=== PATIENT | male | born 1990 | race Caucasian/White ===

== ENCOUNTER 2016-12-02 09:10 | Emergency (ER) | payer MEDICAID, OTHER ==
[~2016-12-02] VITALS: Ht 180.3 cm; Wt 73.0 kg
[2016-12-02 09:11] VITALS: BP 135/70
[2016-12-02] MEDS ORDERED: CLINDAMYCIN 150 MG CAP PO ONE (10:15)
[2016-12-02] MEDS ORDERED: AZITHROMYCIN 250 MG TAB PO ONE (10:15)
[2016-12-02] MEDS ORDERED: MAGIC MOUTHWASH SUSPENSION BTL SSP ONE (10:15)
[2016-12-02] MEDS ORDERED: MAGICMW MT (10:17)
[2016-12-02] MEDS ORDERED: ZITHTAB PO (10:17)
== END 2016-12-02 10:47 | disposition home or self-care (01) ==
LOC: M ED 10:17
DX: J02.0 Streptococcal pharyngitis (principal)

== ENCOUNTER 2018-08-13 17:16 | Emergency (ER) | payer OTHER ==
[~2018-08-13] VITALS: Ht 180.3 cm; Wt 75.0 kg
[~2018-08-13 17:16] MED LIST: MAGICMW MT; ZITHTAB PO
--- NOTE | 2018-08-13 18:29 | REP ---
Clinical: Palpitations and chest pain with shortness of breath . Comparison: None . Technique: PA and lateral. Findings: The mediastinum and cardiac silhouette are normal. The lung acosta are clear and without acute consolidation, effusion, or pneumothorax. The skeletal structures are intact and normal. Impression: 1. No acute cardiopulmonary process. Electronically Signed by Scott Mata MD 08/13/2018 06:21 P
[2018-08-13 18:55] LABS: BASO % 0.4 % (0.0-1.0); EOS # 0.1 10^3/uL (0.0-0.50); EOS % 0.6 % (0.0-3.0); HEMATOCRIT 49.7 % (42.0-52.0); HEMOGLOBIN 17.1 g/dl (13.5-17.5); LYMPH # 1.2 10^3/uL (1.5-6.5); LYMPH % 11.1 % (24.0-44.0); MEAN CORPUSCULAR HEMOGLOBIN 30.5 pg (27.0-33.0); MEAN CORPUSCULAR HGB CONC 34.4 g/dl (32.0-36.5); MEAN CORPUSCULAR VOLUME 88.8 fl (80.0-96.0); MONO # 0.8 10^3/uL (0.0-0.8); NEUTROPHILS # 8.4 10^3/uL (1.8-7.7); NEUTROPHILS % 79.5 % (36.0-66.0); PLATELET COUNT, AUTOMATED 260 10^3/uL (150-450); WHITE BLOOD COUNT 10.6 10^3/uL (4.0-10.0)
[2018-08-13 19:09] LABS: AMPHETAMINES LEVEL URINE POSITIVE (NEGATIVE); BARBITURATES URINE NEGATIVE (NEGATIVE); BENZODIAZEPINES URINE NEGATIVE (NEGATIVE); CANNABINOIDS URINE POSITIVE (NEGATIVE); COCAINE METABOLITE URINE NEGATIVE (NEGATIVE); METHADONE URINE NEGATIVE (NEGATIVE); OPIATES URINE NEGATIVE (NEGATIVE); PHENCYCLIDINE URINE NEGATIVE (NEGATIVE)
[2018-08-13 19:21] LABS: INFLUENZA A AMPLIFICATION NEGATIVE (NEGATIVE); INFLUENZA B AMPLIFICATION NEGATIVE (NEGATIVE)
[2018-08-13 19:26] LABS: APPEARANCE, URINE CLEAR (CLEAR); BACTERIA, URINE AUTO NEGATIVE (NEGATIVE); BILIRUBIN, URINE AUTO NEGATIVE (NEGATIVE); BLOOD, URINE BLOOD NEGATIVE (NEGATIVE); CALCIUM OXALATE CRYSTALS SMALL; COLOR, URINE YELLOW (YELLOW); GLUCOSE, URINE (UA) AUTO NEGATIVE (NEGATIVE); KETONE, URINE AUTO 1+ mg/dL (NEGATIVE); LEUKOCYTE ESTERASE, URINE AUTO NEGATIVE (NEGATIVE); MUCUS, URINE SMALL (NEGATIVE); NITRITE, URINE AUTO NEGATIVE (NEGATIVE); PROTEIN, URINE AUTO 1+ mg/dL (NEGATIVE); RBC, URINE AUTO 0 /HPF (0-3); SPECIFIC GRAVITY URINE AUTO 1.024 (1.002-1.035); SQUAMOUS EPITHELIAL CELL UR AU 0 /HPF (0-6); WBC, URINE AUTO 0 /HPF (0-3)
[2018-08-13 19:31] LABS: ALBUMIN 4.4 GM/DL (3.2-5.2); ALT/SGPT 25 U/L (12-78); BILIRUBIN,TOTAL 1.2 MG/DL (0.2-1.0); BLOOD UREA NITROGEN 12 MG/DL (7-18); CARBON DIOXIDE LEVEL 25 MEQ/L (21-32); CHLORIDE LEVEL 104 MEQ/L (98-107); CPK CREATINE PHOSPHOKINASE 177 U/L (39-308); CREATININE FOR GFR 0.98 MG/DL (0.70-1.30); FREE THYROXINE INDEX 5.5 % (1.4-3.8); GLOMERULAR FILTRATION RATE > 60.0 (>60); GLUCOSE, FASTING 82 MG/DL (70-100); MB/CK RELATIVE INDEX 1.02 (< OR =4); POTASSIUM SERUM 4.4 MEQ/L (3.5-5.1); SODIUM LEVEL 139 MEQ/L (136-145); T UPTAKE 38 % (33-40); THYROXINE (T4) 14.4 UG/DL (4.5-12.0); TOTAL PROTEIN 8.2 GM/DL (6.4-8.2); TROPONIN I < 0.02 NG/ML (< 0.10)
--- NOTE | 2018-08-13 20:13 | ECGEPIP ---
Stationary ECG Study [facility] - ED Test Date: 2018-08-13 Pat Name: SUN EVANS Department: Room: - Gender: M Quality Rn: : [id number] Requested By: RONY GARCIA Order Number: [id number] Reading MD: Luz Marina Woodruff Measurements Intervals [place] Rate: 101 P: 56 ME: 135 QRS: 92 QRSD: 93 T: 24 QT: 342 QTc: 445 Interpretive Statements SINUS TACHYCARDIA BORDERLINE RIGHT AXIS DEVIATION NONSPECIFIC T-WAVE ABNORMALITY ABNORMAL RHYTHM ECG NO PRIOR FOR COMPARISON Electronically Signed On 08-13-2018 20:13:29 EST by Luz Marina Woodruff
[2018-08-13 20:28] VITALS: BP 131/83
== END 2018-08-13 20:30 | disposition home or self-care (01) ==
LOC: M ED 17:16
DX: F41.9 Anxiety disorder, unspecified (principal); F19.90 Other psychoactive substance use, unspecified, uncomplicated; R94.31 Abnormal electrocardiogram [ECG] [EKG]; F17.200 Nicotine dependence, unspecified, uncomplicated; Z82.49 Family history of ischemic heart disease and other diseases of the circulatory system; Z88.0 Allergy status to penicillin

== ENCOUNTER 2018-10-05 18:39 | Emergency (ER) | payer OTHER ==
[~2018-10-05] VITALS: Ht 177.8 cm; Wt 5.5 kg
[2018-10-05] MEDS ORDERED: NAPROXEN 250 MG TAB PO ONE (19:00)
[2018-10-05] MEDS ORDERED: LIDOCAINE 1% SDV INJ 30 ML VIAL SC SCH (19:30)
--- NOTE | 2018-10-05 19:45 | REP ---
There is anterior dislocation of the proximal interphalangeal joint of the 2nd digit. There is no evidence of a fracture. Electronically Signed by Jone Lopez DO 10/05/2018 07:53 P
[2018-10-05 20:03] VITALS: BP 119/75
--- NOTE | 2018-10-06 06:58 | REP ---
REASON: Status-post reduction. COMPARISON: Prereduction exam earlier. The dislocation of the PIP of the 2nd digit has been reduced. The alignment is anatomical. There is no fracture. Electronically Signed by Jone Lopez DO 10/06/2018 10:41 A
== END 2018-10-05 20:09 | disposition home or self-care (01) ==
LOC: M ED 18:39
DX: S93.115A Dislocation of interphalangeal joint of left lesser toe(s), initial encounter (principal); X58.XXXA Exposure to other specified factors, initial encounter; Y92.830 Public park as the place of occurrence of the external cause; F17.210 Nicotine dependence, cigarettes, uncomplicated; Z88.0 Allergy status to penicillin

== ENCOUNTER 2018-10-09 09:52 | Emergency (ER) | payer OTHER ==
[~2018-10-09] VITALS: Ht 177.8 cm; Wt 76.4 kg
[2018-10-09 09:54] VITALS: BP 130/76
[2018-10-09] MEDS ORDERED: ZITHTAB PO (10:16)
[2018-10-09] MEDS ORDERED: MAGICMW SSP (10:16)
== END 2018-10-09 10:24 | disposition home or self-care (01) ==
LOC: M ED 09:52
DX: J02.0 Streptococcal pharyngitis (principal); Z88.0 Allergy status to penicillin

== ENCOUNTER → 2019-02-23 | Outpatient (CLI) | payer OTHER ==
[~2019-02-23] MED LIST changes: +MAGICMW SSP
--- NOTE | 2019-02-23 11:21 | REP ---
CT LEFT WRIST WITHOUT CONTRAST: HISTORY: Question occult fracture versus sprain. No comparison radiographs. TECHNIQUE: Helical scanning is acquired. The study is acquired through overlying cast material. 2 mm axials are reformatted. Coronal and sagittal MPR images are generated. CT FINDINGS: The distal radius and ulna appear intact. No carpal bone fracture is seen. No malalignment is observed. The visualized portions of the metacarpals appear intact. No significant soft tissue abnormality. IMPRESSION: Negative CT study of the left wrist through overlying cast material. No fracture is seen. Electronically Signed by Chencho Davidson MD 02/23/2019 11:31 A
== END ==
LOC: M RAD 10:40
PROVIDERS: ATTEND Orthopaedic Surgery Hand Surgery
DX: S63.502A Unspecified sprain of left wrist, initial encounter (principal); X58.XXXA Exposure to other specified factors, initial encounter; Y92.89 Other specified places as the place of occurrence of the external cause

== ENCOUNTER → 2019-03-07 | Outpatient (REF) | payer SELFPAY ==
[2019-03-07 18:06] LABS: ALT/SGPT 23 U/L (12-78); BILIRUBIN,TOTAL 0.6 MG/DL (0.2-1.0); BLOOD UREA NITROGEN 14 MG/DL (7-18); CARBON DIOXIDE LEVEL 30 MEQ/L (21-32); CHLORIDE LEVEL 105 MEQ/L (98-107); CHOLESTEROL LEVEL 137 MG/DL (<200); CHOLESTEROL RISK RATIO 2.107 (<5); CREATININE FOR GFR 0.94 MG/DL (0.70-1.30); FREE T4 0.99 NG/DL (0.76-1.46); GLOMERULAR FILTRATION RATE > 60.0 (>60); GLUCOSE, FASTING 98 MG/DL (70-100); HDL CHOLESTEROL 65 MG/DL (>40); LDL CHOLESTEROL 62 MG/DL (<100); NON-HDL-C 72 MG/DL; POTASSIUM SERUM 4.8 MEQ/L (3.5-5.1); SODIUM LEVEL 138 MEQ/L (136-145); THYROID STIMULATING HORMONE 0.801 uIU/ML (0.358-3.740); TOTAL 25(OH) VITAMIN D 33.4 NG/ML (30.0-100.0); TRIGLYCERIDES LEVEL 50 MG/DL (<150)
[2019-03-07 18:11] LABS: BASO % 0.7 % (0.0-1.0); EOS # 0.3 10^3/uL (0.0-0.5); EOS % 6.7 % (0.0-3.0); HEMATOCRIT 44.6 % (42.0-52.0); HEMOGLOBIN 15.1 g/dl (13.5-17.5); LYMPH # 1.2 10^3/uL (1.5-5.0); LYMPH % 26.2 % (24.0-44.0); MEAN CORPUSCULAR HGB CONC 33.9 g/dl (32.0-36.5); MEAN CORPUSCULAR VOLUME 94.5 fl (80.0-96.0); MONO # 0.3 10^3/uL (0.0-0.8); MONO % 7.3 % (0.0-5.0); NEUTROPHILS # 2.7 10^3/uL (1.5-8.5); NEUTROPHILS % 58.9 % (36.0-66.0); PLATELET COUNT, AUTOMATED 193 10^3/uL (150-450); RED BLOOD COUNT 4.72 10^6/uL (4.30-6.10); WHITE BLOOD COUNT 4.5 10^3/uL (4.0-10.0)
[2019-03-07 19:00] LABS: HEMOGLOBIN A1c 5.1 %
[2019-03-10 00:06] LABS: Lyme Disease IgG/IgM Antibodie <0.91 ISR (0.00-0.90); Lyme Disease IgM Ab Quantitati <0.80 index (0.00-0.79)
== END ==
LOC: M LAB REF 17:19
PROVIDERS: ATTEND Family Medicine
DX: Z13.228 Encounter for screening for other metabolic disorders (principal); M25.50 Pain in unspecified joint

== ENCOUNTER 2019-06-09 14:10 | Emergency (ER) | payer OTHER ==
[~2019-06-09] VITALS: Ht 177.8 cm; Wt 74.1 kg
[2019-06-09 15:44] VITALS: BP 150/74
== END 2019-06-09 15:50 | disposition home or self-care (01) ==
LOC: EDBD 14:10 → M ED 14:10
DX: F12.288 Cannabis dependence with other cannabis-induced disorder (principal); Z88.0 Allergy status to penicillin; F17.210 Nicotine dependence, cigarettes, uncomplicated

== ENCOUNTER 2023-07-22 11:45 | Emergency (ER) | payer MEDICAID, OTHER ==
[~2023-07-22] VITALS: Ht 177.8 cm; Wt 77.4 kg
[2023-07-22 11:45] VITALS: BP 133/74; TEMP 97.8; O2SAT 100
== END 2023-07-22 14:07 | disposition left against medical advice (07) ==
LOC: M ED 11:45
DX: Z53.21 Procedure and treatment not carried out due to patient leaving prior to being seen by health care provider (principal)

== ENCOUNTER 2023-08-14 07:26 | Emergency (ER) | payer OTHER ==
[~2023-08-14] VITALS: Ht 177.8 cm; Wt 76.5 kg
[2023-08-14] MEDS ORDERED: MELO10CA2 PO (07:46)
[2023-08-14] MEDS: IBUPROFEN 800 MG TAB PO ONE (08:15)
[2023-08-14 09:48] VITALS: BP 129/58; TEMP 100; O2SAT 98
[2023-08-14] MEDS: ACETAMINOPHEN 500 MG TAB PO ONE (09:54)
[2023-08-14] MEDS ORDERED: IBUP80TA PO (10:02)
[2023-08-14] MEDS ORDERED: ACET325C5 PO (10:02)
== END 2023-08-14 10:16 | disposition home or self-care (01) ==
LOC: EDSEX 07:26 → EDBD 07:26 → M ED 07:26
DX: J09.X2 Influenza due to identified novel influenza A virus with other respiratory manifestations (principal); F17.200 Nicotine dependence, unspecified, uncomplicated; Z88.1 Allergy status to other antibiotic agents; Z79.1 Long term (current) use of non-steroidal anti-inflammatories (NSAID); Z79.899 Other long term (current) drug therapy

== ENCOUNTER 2023-12-30 06:39 | Emergency (ER) | payer OTHER ==
[~2023-12-30 06:39] MED LIST changes: +ACET325C5 PO; +IBUP80TA PO; +MELO10CA2 PO
== END 2023-12-30 07:12 | disposition left against medical advice (07) ==
LOC: M ED 06:39
DX: Z53.21 Procedure and treatment not carried out due to patient leaving prior to being seen by health care provider (principal)

== ENCOUNTER 2024-01-04 22:00 | Emergency (ER) | payer OTHER ==
[~2024-01-04] VITALS: Ht 175.3 cm; Wt 73.7 kg
[2024-01-04 22:01] VITALS: BP 140/87; TEMP 98.3; O2SAT 100
== END 2024-01-05 01:56 | disposition home or self-care (01) ==
LOC: M ED 22:00
DX: S60.121A Contusion of right index finger with damage to nail, initial encounter (principal); W23.2XXA Caught, crushed, jammed or pinched between a moving and stationary object, initial encounter; Y92.9 Unspecified place or not applicable; Y93.9 Activity, unspecified; Y99.9 Unspecified external cause status; F17.200 Nicotine dependence, unspecified, uncomplicated; Z79.899 Other long term (current) drug therapy; Z88.0 Allergy status to penicillin